=== PATIENT | female | born 1960 | race Caucasian/White ===

== ENCOUNTER 2016-08-03 10:50 | Emergency (ER) | payer BC ==
[2016-08-03 11:02] VITALS: RESP 18; TEMP 98
[2016-08-03] MEDS ORDERED: IBUPROFEN 600 MG TAB PO ONE (11:31)
--- NOTE | 2016-08-03 12:26 | EDPHY ---
H & P Time Seen by Provider: 08/03/16 11:14 HPI/ROS: CHIEF COMPLAINT: Thumb injury HISTORY OF PRESENT ILLNESS: 55-year-old female states that she thinks she injured her thumb either doing Pilates or while pulling a tight head band from her hair 2 days ago. She reports pain at the base of her right thumb and states she feels a small lump there. No direct trauma. No swelling. No erythema. No discomfort in her hand or fingers. No numbness or tingling. REVIEW OF SYSTEMS: Aside from elements discussed in the HPI, a comprehensive 10-point review of systems was reviewed and is negative. PAST MEDICAL HISTORY: migraines, anxiety, ADD. SOCIAL HISTORY: Here with her family. GENERAL APPEARANCE: Alert, no acute distress. FOCUSED EXAM OF right hand: No deformity noted. No erythema or swelling noted. Patient has mild tenderness palpation at the base of the right thumb along the ulnar aspect. There is a palpable tender round mobile area at the base of the thumb which is mildly tender. No laxity of the ulnar collateral ligament. Normal flexion, extension, abduction, abduction and opposition. Normal sensation. Normal capillary refill. Neurovascular exam: Good capillary refill, normal motor exam, normal neurologic exam. Constitutional: Initial Vital Signs Temperature (C) 36.6 C 08/03/16 11:00 Heart Rate 88 08/03/16 11:00 Respiratory Rate 18 08/03/16 11:00 Blood Pressure 105/83 H 08/03/16 11:00 O2 Sat (%) 97 08/03/16 11:00 O2 Delivery Mode Room Air Allergies/Adverse Reactions: Penicillins Allergy (Intermediate, Verified 05/29/13 19:17) RASH-PRUITIC EGGS Allergy (Severe, Uncoded 02/06/10 17:00) Home Medications: Medication Instructions Recorded CONCERTA 54 mg 02/06/10 Cymbalta 60 mg 02/06/10 Diazepam [Valium 2 MG (RX)] 05/29/13 Ibuprofen [Motrin (*)] 600 mg PO Q6 PRN #30 tab 05/29/13 Ondansetron Odt [Zofran Odt] 4 - 8 mg PO Q4PRN PRN #4 tab 05/29/13 Rizatriptan Benzoate [Maxalt [employer]oring [employer]] 5 - 10 mg PO Q2 PRN #6 tab.rapdis 05/29/13 Amantadine HCl 08/03/16 Medical Decision Making - Diagnostics Imaging Results: Imaging Impressions Finger X-Ray 08/03/16 11:31 Impression: Negative radiographs of the right thumb. Imaging: I viewed and interpreted images myself ED Course/Re-evaluation: 55-year-old female with pain at the base of her right thumb. Examination for possible ulnar collateral ligament injury was normal. There is a palpable tender round mobile area at the base of the thumb. X-rays demonstrate no fracture. There is however a sesamoid bone present right at the area of the patient's tenderness. My question whether she has developed a bit of irritation to the sesamoid over the tendons around it. Patient was placed in the Velcro thumb spica splint. She has seen Dr. Cleveland previously and she will follow up with him if not improving with conservative management. She was given instructions regarding rest, ice, and nonsteroidals. Differential Diagnosis: Differential diagnosis for the patient's presenting complaint was considered including but not limited to sprain, avulsion fracture, fracture, tendon injury , musculoskeletal pain, gangilion cyst, or dislocation. - Data Points Medications Given: Discontinued Medications Ibuprofen (Motrin) 600 mg PO EDNOW ONE Stop: 08/03/16 11:32 Last Admin: 08/03/16 11:49 Dose: 600 mg Departure - Departure Disposition: Home, Routine, Self-Care Clinical Impression: Thumb sprain Qualifiers: Encounter type: initial encounter Sprain of finger site: unspecified site Laterality: right Qualified Code(s): S63.601A - Unspecified sprain of right thumb, initial encounter Condition: Good Instructions: Finger Sprain (ED) Additional Instructions: Mainstay of therapy is rest, ice, immobilization, and nonsteroidal anti- inflammatories for pain and to decrease swelling. Apply ice for 20-30 minutes every 2-3 hours for the next 48 hours. I recommend Ibuprofen (Motrin, Advil) or Naproxen Sodium (Aleve) for pain and anti-inflammatory effects. You may take either one, but do not take both. Your dose is: Ibuprofen 600 mg every 6-8 hours with food. OR Naproxen Sodium (Aleve) 220 mg every 12 hours. Wear the thumb spica splint for comfort. Please wear the splint for at least 48 hours to allow the thumb to rest. After that, you may use the splint more intermittently as needed for comfort. Followup with the hand specialist as directed. Referrals: Cameron Cleveland MD [Medical Doctor] - As per Instructions
[2016-08-03 12:36] VITALS: BP 115/62; PULSE 74; O2SAT 93
== END 2016-08-03 12:34 | disposition home or self-care (01) ==
LOC: CED 10:50
DX: S63.601A Unspecified sprain of right thumb, initial encounter (principal); X58.XXXA Exposure to other specified factors, initial encounter
CPT/HCPCS: 73140-PO; L3807